=== PATIENT | male | born 1950 | race Hispanic/Latino ===

== ENCOUNTER 2016-12-29 08:52 | Outpatient (CLI) | payer MEDICARE ==
[2016-12-29 12:38] LABS: Hemoglobin A1c 7.2 % (4.0-6.0)
[2016-12-29 12:56] LABS: Cardiac Risk 4.5 (Less than 4.5)
== END 2016-12-29 08:53 | disposition home or self-care (01) ==
LOC: NAVSJIPCSP 08:52
PROVIDERS: ATTEND Internal Medicine
DX: E78.5 Hyperlipidemia, unspecified (principal); E11.9 Type 2 diabetes mellitus without complications
CPT/HCPCS: 36415; 80061; 83036